=== PATIENT | female | born 1955 | race Caucasian/White ===

== ENCOUNTER → 2018-02-16 08:16 | Outpatient (CLI) | payer MEDICARE, OTHER, SELFPAY ==
[2018-02-16] VITALS (7 sets, daily range): BP systolic 108–152; BP diastolic 64–97; PULSE 74–89; RESP 15–18; TEMP 36.1–36.7; O2SAT 96–99; BMI 36.6
== END ==
PROVIDERS: Referring Provider Internal Medicine Hematology & Oncology; Visit Provider Internal Medicine Hematology & Oncology
DX: D61.818 Other pancytopenia (principal)
CPT/HCPCS: 36430; 86850; 86900; J7040; P9016; A4216

== ENCOUNTER → 2018-03-26 08:16 | Outpatient (CLI) | payer MEDICARE, OTHER, SELFPAY ==
[2018-03-26] VITALS (7 sets, daily range): BP systolic 111–136; BP diastolic 74–85; PULSE 74–101; RESP 16–18; TEMP 36.3–36.7; O2SAT 96–100; BMI 34.5
== END ==
PROVIDERS: Referring Provider Internal Medicine Hematology & Oncology; Visit Provider Internal Medicine Hematology & Oncology
DX: D61.818 Other pancytopenia (principal)
CPT/HCPCS: 36430; 86850; 86900; J7040; P9016; A4216